=== PATIENT | female | born 1935 | race Caucasian/White ===

== ENCOUNTER 2017-09-01 18:14 | Inpatient (IN) | payer OTHER ==
[~2017-09-01] VITALS: Ht 165.1 cm; Wt 85.3 kg
[2017-09-01] MEDS ORDERED: IPRATROPIUM BROMIDE 0.5 MG/2.5 ML NEBU NEB ONE (19:00)
[2017-09-01] MEDS ORDERED: ALBUTEROL SULFATE 2.5 MG/3 ML NEBU NEB ONE (19:00)
--- NOTE | 2017-09-01 19:15 | NUR ---
Recieved report from ROMANA Ross. Assumed care of pt at this time. Pt receiving breathing treatment currently
[2017-09-01] MEDS ORDERED: ASPI-605 PO (19:20)
[2017-09-01] MEDS ORDERED: PARO20TA51 PO (19:20)
[2017-09-01] MEDS ORDERED: NYST60PO TP (19:20)
[2017-09-01] MEDS ORDERED: ALBU2.5V38 IH (19:20)
[2017-09-01] MEDS ORDERED: WARF4TAB41 PO (19:20)
[2017-09-01] MEDS ORDERED: LACT1CAP61 PO (19:20)
[2017-09-01] MEDS ORDERED: METO25TA6 PO (19:20)
[2017-09-01] MEDS ORDERED: MIDO5TAB PO (19:20)
[2017-09-01] MEDS ORDERED: DIPH1TAB PO (19:20)
[2017-09-01] MEDS ORDERED: FLUT1DIS29 IH (19:20)
[2017-09-01] MEDS ORDERED: THIA100T13 PO (19:20)
[2017-09-01] MEDS ORDERED: SENN-167 PO (19:20)
[2017-09-01] MEDS ORDERED: DOCU100C36 PO (19:20)
[2017-09-01] MEDS ORDERED: LOVA20TA2 PO (19:20)
[2017-09-01] MEDS ORDERED: ACET325T53 PO (19:20)
[2017-09-01] MEDS ORDERED: OMEP20CA10 PO (19:20)
[2017-09-01] MEDS ORDERED: IPRA0.2S48 IH (19:20)
[2017-09-01] MEDS ORDERED: WARF2TAB57 PO (19:20)
[2017-09-01] MEDS ORDERED: ALBUTEROL SULFATE 2.5 MG/3 ML NEBU ONE (19:21)
[2017-09-01] MEDS ORDERED: IPRATROPIUM BROMIDE 0.5 MG/2.5 ML NEBU ONE (19:21)
[2017-09-01 19:29] LABS: BASOPHILS % (AUTO) 0.2 % (0.0-2.0); EOSINOPHILS # (AUTO) 0.2 K/uL (0.0-0.7); EOSINOPHILS % (AUTO) 2.7 % (0.0-7.0); HEMATOCRIT 37.2 % (37-47); HEMOGLOBIN 11.8 G/DL (12.0-16.0); LYMPHOCYTES # (AUTO) 1.2 K/UL (0.8-4.8); LYMPHOCYTES % (AUTO) 16.4 % (20.5-51.5); MEAN CORPUSCULAR HGB CONC 32 g/dL (32.0-37.0); MEAN CORPUSCULAR VOLUME 88.3 FL (81.0-99.0); MONOCYTES # (AUTO) 0.4 K/UL (0.1-1.30); MONOCYTES % (AUTO) 6.1 % (0.0-11.0); NEUTROPHILS # (AUTO) 5.3 K/UL (1.8-8.9); NEUTROPHILS % (AUTO) 74.6 % (38.5-71.5); PLATELET COUNT (AUTO) 217 K/UL (150-450); RED BLOOD CELL COUNT(AUTO) 4.21 MIL/UL (4.2-5.4); WHITE BLOOD COUNT (AUTO) 7.1 K/UL (4.0-11.2)
[2017-09-01 19:33] LABS: CARBON DIOXIDE 35 mmol/L (21-32); CHLORIDE 110 mmol/L (98-107); CREATININE 0.6 mg/dL (0.6-1.3); GLUCOSE 108 mg/dL (74-106); POTASSIUM 3.7 mmol/L (3.5-5.1); UREA NITROGEN, BLOOD 17 mg/dL (7-18)
[2017-09-01] MEDS ORDERED: ONDANSETRON IV *ER 4 MG/2 ML VIAL IV ONE (19:45)
[2017-09-01] MEDS ORDERED: HYDROMORPHONE 1 MG/1 ML DISP.SYRIN IV ONE ×2 (19:45→23:15)
[2017-09-01 19:46] LABS: ALANINE AMINOTRANSFERASE 18 U/L (14-59); ALKALINE PHOSPHATASE 86 U/L (50-136); ASPARTATE AMINOTRANSFERASE 12 U/L (15-37); BILIRUBIN,DIRECT 0.1 mg/dL (0.0-0.2); BILIRUBIN,TOTAL 0.5 mg/dL (0.2-1.0); TOTAL PROTEIN, SERUM 7.2 g/dL (6.4-8.2)
--- NOTE | 2017-09-01 19:50 | NUR ---
Pt c/o neck and back pain, Dr. Walsh notified. Pt medicated for discomfort, will monitor for effects of medication. Pt repositioned for comfort.
[2017-09-01] MEDS ORDERED: ONDANSETRON 4 MG/2 ML VIAL ONE (19:58)
[2017-09-01] MEDS ORDERED: ASPIRIN 81 MG TAB.CHEW PO ONE (20:00)
[2017-09-01] MEDS ORDERED: NITROGLYCERIN OINT 1 GM PACKET TP ONE ×2 (20:00→21:03)
[2017-09-01] MEDS ORDERED: HYDROMORPHONE 2 MG/1 ML DISP.SYRIN ONE (20:00)
[2017-09-01] MEDS ORDERED: FUROSEMIDE 20 MG/2 ML VIAL IV ONE (20:00)
--- NOTE | 2017-09-01 20:16 | NUR ---
Per insurance pt to be transferred to [place] if stable. Called [facility] and spoke with Landy. At this time there are no beds available. She will call back with an update after her bed meeting at 2100. In the mean time she requested [facility] be called and a face sheet faxed to her. Face sheet was faxed and registration to call [facility].
--- NOTE | 2017-09-01 20:20 | NUR ---
Pt to and from CT via stefano. Pt resting in position of comfort for self. No complaints at this time
--- NOTE | 2017-09-01 20:20 | NUR ---
Pt resting in position of comfort for self. Pt sts pain improving with medications.
--- NOTE | 2017-09-01 20:25 | NUR ---
Shayna with registration called [facility] and spoke with Awaiting call back.
[2017-09-01] MEDS ORDERED: ASPIRIN 81 MG TAB.CHEW ONE (21:02)
[2017-09-01] MEDS ORDERED: FUROSEMIDE 20 MG/2 ML VIAL ONE (21:03)
--- NOTE | 2017-09-01 21:45 | NUR ---
Plan of care for pt is to be admitted here. Dr. Walsh spoke with for [facility], pt unstable for transfer and to be admitted.
[2017-09-01] MEDS ORDERED: IOHEXOL 350 100 ML INFUS..BTL ONE (22:19)
[2017-09-01] MEDS ORDERED: IV NORMAL SALINE 250 ML IV ONE (22:19)
[2017-09-01] MEDS ORDERED: NORMAL SALINE FLUSH 10 ML DISP.SYRIN ONE (22:19)
--- NOTE | 2017-09-01 23:11 | NUR ---
Epic on called paged for Dr. Walsh. Pt and bedding cleaned and changed. Pt repositioned for comfort. Per pt's request son called and msg left to call back the ER.
[2017-09-01] MEDS ORDERED: ENOXAPARIN SODIUM 80 MG/0.8 ML DISP.SYRIN SQ ONE (23:30)
[2017-09-02] MEDS ORDERED: ACETAMINOPHEN 325 MG TABLET PO PRN
[2017-09-02] MEDS ORDERED: IPRATROPIUM BROMIDE 0.5 MG/2.5 ML NEBU IH PRN
[2017-09-02] MEDS ORDERED: ALBUTEROL SULFATE 2.5 MG/3 ML NEBU IH PRN
[2017-09-02] MEDS ORDERED: HYDROMORPHONE 2 MG/1 ML DISP.SYRIN ONE (00:09)
[2017-09-02] MEDS ORDERED: ENOXAPARIN SODIUM 80 MG/0.8 ML DISP.SYRIN SQ ONE ×2 (00:10→02:14)
[2017-09-02] MEDS ORDERED: HYDROMORPHONE 1 MG/1 ML DISP.SYRIN IV PRN (00:15)
--- NOTE | 2017-09-02 00:40 | NUR ---
Report called to ROMANA Og. Preparing to transfer pt to the floor.
[2017-09-02 01:00] VITALS: BP 157/63
--- NOTE | 2017-09-02 01:15 | NUR ---
PT RECEIVED FROM ER VIA GURNEY. PT IS DROWSY DUE TO MEDICATIONS GIVEN FROM ER. PT IS IN NO ACUTE DISTRESS. PT IS ADMITTED TO TELE UNDER THE CARE OF DR. PALACIOS. DX: PULMONARY EMBOLISM, NSTEMI. BELONGING LIST DONE, ADMISSION PROCESS, CARE PLAN INITIATED. SAFETY MEASURES IN PLACE. WILL CONTINUE TO MONITOR.
[2017-09-02 06:17] VITALS: BP 125/61
--- NOTE | 2017-09-02 06:30 | NUR ---
PT SLEPT WELL, IN NO ACUTE DISTRESS. PT IS ON TELE V-PACING, NO C/O OF CHEST PAIN OR SOB. SAFETY MEASURES IN PLACE, CALL LIGHT WITHIN REACH, BED ALARM ON. WILL CONTINUE TO MONITOR.
[2017-09-02 06:55] LABS: BASOPHILS % (AUTO) 0.2 % (0.0-2.0); EOSINOPHILS # (AUTO) 0.1 K/uL (0.0-0.7); HEMATOCRIT 37.4 % (31.2-41.9); HEMOGLOBIN 12.7 g/dL (10.9-14.3); LYMPHOCYTES # (AUTO) 0.7 K/uL (20.0-40.0); LYMPHOCYTES % (AUTO) 9.3 % (20.5-51.5); MEAN CORPUSCULAR HEMOGLOBIN 30.1 uug (24.7-32.8); MEAN CORPUSCULAR HGB CONC 34 g/dL (32.3-35.6); MEAN CORPUSCULAR VOLUME 88.8 fL (75.5-95.3); MONOCYTES # (AUTO) 0.6 K/uL (2.0-10.0); MONOCYTES % (AUTO) 7.9 % (0.0-11.0); NEUTROPHILS % (AUTO) 81.6 % (38.5-71.5); PLATELET COUNT (AUTO) 186 K/uL (179-408); RED BLOOD CELL COUNT(AUTO) 4.21 MIL/uL (3.63-4.92); WHITE BLOOD COUNT (AUTO) 7.4 K/uL (3.8-11.8)
[2017-09-02] MEDS ORDERED: ALBUTEROL SULFATE 2.5 MG/ 0.5 ML NEBU NEB PRN (07:15)
[2017-09-02] MEDS ORDERED: METOPROLOL TARTRATE 25 MG TABLET PO SCH ×2 (07:15)
[2017-09-02 07:25] LABS: IRON, SERUM 35 ug/dL (50-175)
[2017-09-02 07:40] LABS: ALANINE AMINOTRANSFERASE 18 U/L (14-59); ALKALINE PHOSPHATASE 93 U/L (50-136); ASPARTATE AMINOTRANSFERASE 27 U/L (15-37); BILIRUBIN,TOTAL 0.6 mg/dL (0.2-1.0); CARBON DIOXIDE 38 mmol/L (21-32); CHLORIDE 108 mmol/L (98-107); CHOLESTEROL 125 mg/dL (<200); CREATININE 0.7 mg/dL (0.6-1.3); GLUCOSE 108 mg/dL (74-106); HDL CHOLESTEROL 48 mg/dL (40-60); MAGNESIUM 2.2 mg/dL (1.8-2.4); PHOSPHOROUS 4.6 mg/dL (2.5-4.9); POTASSIUM 4.1 mmol/L (3.5-5.1); TRIGLYCERIDES 72 MG/DL (30-150); UREA NITROGEN, BLOOD 28 mg/dL (7-18)
--- NOTE | 2017-09-02 08:00 | NUR ---
Sleeping but easily aroused, alert, oriented x 3. O2 at 2L/NC.
[2017-09-02] MEDS ORDERED: FLUTICASONE/SALMETEROL 250/50 INHALER INH SCH (09:00)
[2017-09-02] MEDS: METOPROLOL TARTRATE 25 MG TABLET PO SCH ×2 (09:00→21:00)
[2017-09-02] MEDS ORDERED: Medication Not On Formulary EA (Lactobacillus Acidophilus (Acidophilus) 1 EACH) PO SCH (09:00)
[2017-09-02] MEDS ORDERED: IPRATROPIUM BROMIDE 0.5 MG/2.5 ML NEBU NEB PRN (09:00)
[2017-09-02] MEDS: PANTOPRAZOLE SODIUM 40 MG TABLET.DR PO SCH (09:24)
[2017-09-02] MEDS: FLUTICASONE/VILANTEROL 1 EACH BLST.W.DEV INH SCH (09:24)
[2017-09-02] MEDS: FUROSEMIDE 40 MG/4 ML VIAL IV SCH (09:24)
[2017-09-02] MEDS: ASPIRIN EC 81 MG TABLET.DR PO SCH (09:25)
[2017-09-02] MEDS: ACIDOPHILUS/BULGARICUS CHEW TAB PO SCH ×2 (09:25→17:17)
[2017-09-02] MEDS: Z GUARD REMEDY PASTE 57 GM TUBE TOP SCH ×2 (09:25→21:14)
[2017-09-02] MEDS: THIAMINE HCL 100 MG TABLET PO SCH (09:25)
[2017-09-02] MEDS: DOCUSATE SODIUM 100 MG CAPSULE PO SCH ×2 (09:25→17:17)
[2017-09-02] MEDS: PAROXETINE HCL 20 MG TABLET PO SCH (09:25)
--- NOTE | 2017-09-02 11:00 | NUR ---
Venous Doppler of BLE and Echocardiogram done at bedside
[2017-09-02 11:25] VITALS: BP 98/46
--- NOTE | 2017-09-02 14:00 | NUR ---
Resting, noted with intermittent coughing
[2017-09-02 15:05] VITALS: BP 94/48
--- NOTE | 2017-09-02 16:31 | NUR ---
Seen by Dr. Ogden, discussed condition, will call son.
--- NOTE | 2017-09-02 18:41 | NUR ---
Kept dry and comfortable, not in distress.
[2017-09-02] MEDS ORDERED: FUROSEMIDE 20 MG/2 ML VIAL IV ONE (19:15)
[2017-09-02 20:00] VITALS: BP 97/43
[2017-09-02] MEDS: ATORVASTATIN 20 MG TABLET PO SCH (21:13)
[2017-09-02] MEDS: SENNOSIDES 1 TABLET PO SCH (21:13)
[2017-09-03] VITALS: BP 106/41
[2017-09-03 04:00] VITALS: BP 110/43
[2017-09-03] MEDS: PANTOPRAZOLE SODIUM 40 MG TABLET.DR PO SCH (06:00)
[2017-09-03 06:29] LABS: BASOPHILS % (AUTO) 0.2 % (0.0-2.0); EOSINOPHILS # (AUTO) 0.2 K/uL (0.0-0.7); EOSINOPHILS % (AUTO) 2.8 % (0.0-7.0); HEMATOCRIT 33.7 % (31.2-41.9); HEMOGLOBIN 11.1 g/dL (10.9-14.3); LYMPHOCYTES # (AUTO) 1.2 K/uL (20.0-40.0); LYMPHOCYTES % (AUTO) 20.8 % (20.5-51.5); MEAN CORPUSCULAR HEMOGLOBIN 28.6 uug (24.7-32.8); MEAN CORPUSCULAR HGB CONC 33 g/dL (32.3-35.6); MONOCYTES # (AUTO) 0.5 K/uL (2.0-10.0); MONOCYTES % (AUTO) 8.6 % (0.0-11.0); NEUTROPHILS % (AUTO) 67.6 % (38.5-71.5); PLATELET COUNT (AUTO) 196 K/uL (179-408); RED BLOOD CELL COUNT(AUTO) 3.88 MIL/uL (3.63-4.92); WHITE BLOOD COUNT (AUTO) 5.9 K/uL (3.8-11.8)
[2017-09-03 06:55] LABS: ALANINE AMINOTRANSFERASE 16 U/L (14-59); ALKALINE PHOSPHATASE 80 U/L (50-136); ASPARTATE AMINOTRANSFERASE 15 U/L (15-37); BILIRUBIN,TOTAL 0.5 mg/dL (0.2-1.0); CHLORIDE 104 mmol/L (98-107); CREATININE 0.7 mg/dL (0.6-1.3); GLUCOSE 106 mg/dL (74-106); MAGNESIUM 1.8 mg/dL (1.8-2.4); POTASSIUM 3.2 mmol/L (3.5-5.1); TOTAL PROTEIN, SERUM 6.8 g/dL (6.4-8.2); UREA NITROGEN, BLOOD 16 mg/dL (7-18)
[2017-09-03] MEDS: METOPROLOL TARTRATE 25 MG TABLET PO SCH ×2 (09:00→21:00)
[2017-09-03] MEDS: ACIDOPHILUS/BULGARICUS CHEW TAB PO SCH ×2 (09:18→16:59)
[2017-09-03] MEDS: ASPIRIN EC 81 MG TABLET.DR PO SCH (09:18)
[2017-09-03] MEDS: DOCUSATE SODIUM 100 MG CAPSULE PO SCH ×2 (09:18→16:59)
[2017-09-03] MEDS: THIAMINE HCL 100 MG TABLET PO SCH (09:19)
[2017-09-03] MEDS: FLUTICASONE/VILANTEROL 1 EACH BLST.W.DEV INH SCH (09:19)
[2017-09-03] MEDS: PAROXETINE HCL 20 MG TABLET PO SCH (09:19)
[2017-09-03] MEDS: Z GUARD REMEDY PASTE 57 GM TUBE TOP SCH ×2 (09:19→21:05)
[2017-09-03 10:08] LABS: *BILIRUBIN,URIN NEGATIVE (NEGATIVE); *BLOOD, URINE Trace-lysed (NEGATIVE); *CLARITY,URINE CLEAR (CLEAR); *COLOR,URINE YELLOW (YELLOW); *KETONES,URINE NEGATIVE (NEGATIVE); *PROTEIN,URINE NEGATIVE (NEGATIVE); *UROBILINOGEN,URINE 0.2 E.U./dl (NORMAL); LEUKOCYTE ESTERASE ,URINE NEGATIVE (NEGATIVE); NITRITE, URINE NEGATIVE (NEGATIVE); PH,URINE 5.5 (5.0-8.0); UGLUCOSE NEGATIVE (NEGATIVE)
[2017-09-03 10:27] LABS: BACTERIA,URINE NONE SEEN /HPF (NONE SEEN); SQUAMOUS EPITHELIAL CELL,UR FEW /HPF (NONE SEEN); WBC,URINE 0-3 /HPF (0-3)
[2017-09-03 11:07] VITALS: BP 95/35
[2017-09-03] MEDS ORDERED: POTASSIUM CHLORIDE 20 MEQ TAB.PRT.SR PO ONE (11:30)
[2017-09-03] MEDS: FUROSEMIDE 40 MG/4 ML VIAL IV SCH (12:34)
--- NOTE | 2017-09-03 13:44 | NUR ---
PT SEEN ON ROUNDING. PT VITALS LOW . BP MED HELD. LASIX GIVEN ORDRED. IV SITE INTACT NO SIGNS OF ACUTE DISTRESS. PT FOUND DROWSY. PT HAS NON PRODUCTIVE COUGH. BLADDER SCAN DONE. PT HAS 266ML RETAINED. PT HAS UROGENIC BLADDERS PER REPORT. WILL CONTINUE TO REASSESS
[2017-09-03] MEDS: ALBUTEROL SULFATE 2.5 MG/3 ML NEBU NEB SCH ×2 (13:52→19:53)
[2017-09-03] MEDS: IPRATROPIUM BROMIDE 0.5 MG/2.5 ML NEBU NEB SCH ×2 (13:52→19:53)
[2017-09-03] MEDS: methylPREDNISolone SOD SUCC 125 MG/2 ML VIAL IV SCH ×3 (13:59→21:04)
[2017-09-03] MEDS: DOXYCYCLINE HYCLATE IV 100 MG in IV DEXTROSE 5% 100 ML IV SCH ×2 (14:05→20:41)
[2017-09-03 15:12] VITALS: BP 97/46
--- NOTE | 2017-09-03 16:01 | NUR ---
Patient clinicals faxed to Shellie at [facility] , .
--- NOTE | 2017-09-03 16:41 | NUR ---
pt seen on breathing treatments. pt states that she is depressed. pt had voided and witheld insertion of billings. will monitor for ss of urinary retention
--- NOTE | 2017-09-03 18:41 | NUR ---
pt stable throughout the day. pt put on 02 and breathing treatments by md phelps. also recommenced doxycycline, ipratroprium and potassium chloride replacement ordered. pt is off lovenox due to high pt and ir. arterial blood gases and xray chest tomorrow. pt continues to cough productively. respiratory sputum done. will endorse to rn shift mgr nurse.
[2017-09-03 20:00] VITALS: BP 114/42
--- NOTE | 2017-09-03 20:00 | NUR ---
Received pt on bed alert and awake. Able to make needs known. Pleasant, calm and cooperative to care. No acute distress noted. No complaints of pain or discomfort. Cough noted, pt has an ordered breathing treatment. Due meds given as ordered and well tolerated, however, BP meds was held due to low BP. kept clean, dry and comfortable. Call light within reach. All needs met.
[2017-09-03] MEDS: ATORVASTATIN 20 MG TABLET PO SCH ×2 (20:41→21:04)
[2017-09-03] MEDS: SENNOSIDES 1 TABLET PO SCH (21:04)
[2017-09-04 05:25] VITALS: BP 119/52
--- NOTE | 2017-09-04 06:02 | NUR ---
pt slept comfortably throughout the shift. No apparent distress. refused blood draw this am, explained risk and benefits but still pt refused. Denies pain. Vital signs stable. All needs met
[2017-09-04] MEDS: PANTOPRAZOLE SODIUM 40 MG TABLET.DR PO SCH (06:17)
[2017-09-04] MEDS: methylPREDNISolone SOD SUCC 125 MG/2 ML VIAL IV SCH (06:17)
[2017-09-04] MEDS: ALBUTEROL SULFATE 2.5 MG/3 ML NEBU NEB SCH ×2 (07:04→13:24)
[2017-09-04] MEDS: IPRATROPIUM BROMIDE 0.5 MG/2.5 ML NEBU NEB SCH ×2 (07:04→13:24)
--- NOTE | 2017-09-04 08:05 | NUR ---
pt seen on rounding. pt stable during shift .pt continues to have low blood pressure. pt on 2 liters. no sob noted. pt is alert and oriented. no changes prior tp previous day. pt is off community service manager. pt tolerates oxygenation. will provide meds.
[2017-09-04] MEDS: ASPIRIN EC 81 MG TABLET.DR PO SCH (08:40)
[2017-09-04] MEDS: PAROXETINE HCL 20 MG TABLET PO SCH (08:40)
[2017-09-04] MEDS: DOCUSATE SODIUM 100 MG CAPSULE PO SCH (08:41)
[2017-09-04] MEDS: THIAMINE HCL 100 MG TABLET PO SCH (08:41)
[2017-09-04] MEDS: FLUTICASONE/VILANTEROL 1 EACH BLST.W.DEV INH SCH (08:41)
[2017-09-04] MEDS: FUROSEMIDE 40 MG/4 ML VIAL IV SCH (08:41)
[2017-09-04] MEDS: Z GUARD REMEDY PASTE 57 GM TUBE TOP SCH (08:41)
[2017-09-04] MEDS: ACIDOPHILUS/BULGARICUS CHEW TAB PO SCH (08:41)
[2017-09-04] MEDS: DOXYCYCLINE HYCLATE IV 100 MG in IV DEXTROSE 5% 100 ML IV SCH (08:43)
[2017-09-04] MEDS: METOPROLOL TARTRATE 25 MG TABLET PO SCH (08:44)
[2017-09-04] MEDS ORDERED: POTASSIUM CHLORIDE 20 MEQ TAB.PRT.SR PO ONE (10:15)
[2017-09-04 11:03] VITALS: BP 95/37
[2017-09-04 11:49] LABS: ALANINE AMINOTRANSFERASE 15 U/L (14-59); ALKALINE PHOSPHATASE 85 U/L (50-136); ASPARTATE AMINOTRANSFERASE 13 U/L (15-37); BILIRUBIN,TOTAL 0.4 mg/dL (0.2-1.0); CHLORIDE 101 mmol/L (98-107); CREATININE 0.9 mg/dL (0.6-1.3); GLUCOSE 293 mg/dL (74-106); MAGNESIUM 1.8 mg/dL (1.8-2.4); PHOSPHOROUS 2.3 mg/dL (2.5-4.9); POTASSIUM 3.4 mmol/L (3.5-5.1); TOTAL PROTEIN, SERUM 7.4 g/dL (6.4-8.2); UREA NITROGEN, BLOOD 16 mg/dL (7-18)
[2017-09-04 12:15] LABS: CARBON DIOXIDE 40 mmol/L (21-32)
[2017-09-04 13:08] LABS: BASOPHILS % (AUTO) 0.1 % (0.0-2.0); MONOCYTES # (AUTO) 0.1 K/uL (2.0-10.0)
[2017-09-04 13:17] LABS: LYMPHOCYTES # (AUTO) 0.4 K/uL (20.0-40.0); LYMPHOCYTES % (AUTO) 4.7 % (20.5-51.5); MEAN CORPUSCULAR HGB CONC 32 g/dL (32.3-35.6); MEAN CORPUSCULAR VOLUME 86.6 fL (75.5-95.3); MONOCYTES % (AUTO) 1.5 % (0.0-11.0); NEUTROPHILS # (AUTO) 7.2 K/uL (1.8-8.9); NEUTROPHILS % (AUTO) 93.7 % (38.5-71.5); PLATELET COUNT (AUTO) 195 K/uL (179-408); RED BLOOD CELL COUNT(AUTO) 4.29 MIL/uL (3.63-4.92)
[2017-09-04 13:19] LABS: HEMATOCRIT 37.2 % (31.2-41.9); WHITE BLOOD COUNT (AUTO) 7.7 K/uL (3.8-11.8)
[2017-09-04 13:30] LABS: ABG BASE EXCESS 11.7 mmol/L; ABG HCO3 37.5 mmol/L; ABG PCO2 54.3 mmHg (35.0-45.0); ABG PH 7.457 (7.350-7.450); ABG PO2 84.8 mmHg (75.0-100.0); ABG SITE LEFT RADIAL; ABG TOTAL HEMOGLOBIN 12.1 G/dL (12.0-16.0); MetHb 0.3 % (0.0-1.5); O2Hb 95.9 % (94.0-97.0); VENT MODE Nasal Cannula
[2017-09-04 14:14] LABS: BAND % (MANUAL) 2 % (0-10); LYMPHOCYTES % (MANUAL) 8 % (20-40); MONOCYTES % (MANUAL) 2 % (2-10); NEUTROPHILS % (MANUAL) 88 % (42-75)
[2017-09-04 15:12] VITALS: BP 95/35
--- NOTE | 2017-09-04 15:36 | NUR ---
pt discharged to [facility]. md johnson and insurance case manager aware. pt vitals taken. bp 95/39 hr 60 rr 20 temp 98.6 94% on 2l liters. pt had no signs of acute distress. given report to [facility]. all pertinent information given. no discharge order given. however aware of the discharge and will do documentation later. insurance case manager Olivia aware. pt tms form sent with EMT. will finish any pertinent documentation on discharge.
[2017-09-04] MEDS ORDERED: NEUTRA PHOS PACKET PO ONE (16:30)
[2017-09-04] MEDS ORDERED: methylPREDNISolone SOD SUCC 125 MG/2 ML VIAL IV SCH (21:00)
[2017-09-04] MEDS ORDERED: DOXYCYCLINE HYCLATE 100 MG TABLET PO SCH (21:00)
== END 2017-09-04 15:30 | disposition short-term general hospital (02) | DRG 280 ==
LOC: ER 18:15 → TELE 23:45 → MED 09-03 20:00
PROVIDERS: ADMIT Internal Medicine; ATTEND Internal Medicine
DX: I11.0 Hypertensive heart disease with heart failure (principal); I50.43 Acute on chronic combined systolic (congestive) and diastolic (congestive) heart failure; I26.99 Other pulmonary embolism without acute cor pulmonale; I21.A1 Myocardial infarction type 2; J18.9 Pneumonia, unspecified organism; E87.0 Hyperosmolality and hypernatremia; E87.2 Acidosis; D68.8 Other specified coagulation defects; I27.24 Chronic thromboembolic pulmonary hypertension; J45.901 Unspecified asthma with (acute) exacerbation; I07.1 Rheumatic tricuspid insufficiency; I25.119 Atherosclerotic heart disease of native coronary artery with unspecified angina pectoris; I48.2 Chronic atrial fibrillation; Z79.01 Long term (current) use of anticoagulants; E66.9 Obesity, unspecified; R32 Unspecified urinary incontinence; Z87.440 Personal history of urinary (tract) infections; Z74.09 Other reduced mobility; Z68.31 Body mass index [BMI] 31.0-31.9, adult; K58.9 Irritable bowel syndrome, unspecified; Z87.01 Personal history of pneumonia (recurrent); Z95.0 Presence of cardiac pacemaker; Z92.3 Personal history of irradiation; Z88.1 Allergy status to other antibiotic agents; Z88.0 Allergy status to penicillin; Z88.2 Allergy status to sulfonamides; K21.9 Gastro-esophageal reflux disease without esophagitis; Z85.3 Personal history of malignant neoplasm of breast; R23.3 Spontaneous ecchymoses; J98.4 Other disorders of lung; M85.80 Other specified disorders of bone density and structure, unspecified site; M51.34 Other intervertebral disc degeneration, thoracic region; M51.36 Other intervertebral disc degeneration, lumbar region; G89.29 Other chronic pain; Z79.899 Other long term (current) drug therapy; Z79.82 Long term (current) use of aspirin; R79.1 Abnormal coagulation profile
CPT/HCPCS: 36415; 36600; 70030-TC; 71010; 71275; 72100; 83550; 83605; 83735; 84100; 84443; 85025; 85610; 87040; 87070; 87086; 93005; 93307; 94640; 94664; A4663; C1758; J1170; J1650; J1940; J2405; J2930; J3490; J3590; J7050; J7060; Q9967